=== PATIENT | male | born 1980 | race Caucasian/White ===

== ENCOUNTER 2017-03-08 05:52 | Emergency (ER) | payer MEDICAID ==
[2017-03-08 06:29] VITALS: BP 143/103
== END 2017-03-08 06:28 | disposition home or self-care (01) ==
LOC: ED 05:52
DX: F41.9 Anxiety disorder, unspecified (principal); Z79.899 Other long term (current) drug therapy

== ENCOUNTER 2017-04-01 02:22 | Emergency (ER) | payer MEDICAID | END 2017-04-01 03:09 | disposition left against medical advice (07) | LOC: ED 02:22 | DX: Z53.21 Procedure and treatment not carried out due to patient leaving prior to being seen by health care provider (principal) ==

== ENCOUNTER 2017-05-02 03:52 | Emergency (ER) | payer MEDICAID ==
[2017-05-02 04:36] VITALS: BP 140/93
== END 2017-05-02 04:36 | disposition home or self-care (01) ==
LOC: ED 03:52
DX: F41.0 Panic disorder [episodic paroxysmal anxiety] (principal); Z79.899 Other long term (current) drug therapy

== ENCOUNTER 2017-05-26 23:57 | Emergency (ER) | payer SELFPAY ==
[2017-05-27 00:29] VITALS: BP 182/118
== END 2017-05-27 00:29 | disposition left against medical advice (07) ==
LOC: ED 23:57
DX: Z53.21 Procedure and treatment not carried out due to patient leaving prior to being seen by health care provider (principal)

== ENCOUNTER 2017-12-16 17:02 | Emergency (ER) | payer MEDICAID ==
[~2017-12-16] VITALS: Ht 180.3 cm; Wt 104.8 kg
[2017-12-16 17:11] VITALS: BP 120/69; Ht 180.3 cm; Wt 104.8 kg
== END 2017-12-16 18:42 | disposition home or self-care (01) ==
LOC: ED 17:02
DX: J03.90 Acute tonsillitis, unspecified (principal); H60.91 Unspecified otitis externa, right ear

== ENCOUNTER 2018-01-08 06:09 | Emergency (ER) | payer MEDICAID ==
[2018-01-08 06:48] VITALS: BP 140/84
== END 2018-01-08 06:48 | disposition home or self-care (01) ==
LOC: ED 06:09
DX: F41.9 Anxiety disorder, unspecified (principal); I10 Essential (primary) hypertension

== ENCOUNTER 2018-03-27 08:25 | Emergency (ER) | payer MEDICAID ==
[~2018-03-27] VITALS: Ht 180.3 cm; Wt 104.3 kg
[2018-03-27 08:31] VITALS: Ht 180.3 cm; Wt 104.3 kg
[2018-03-27 11:45] VITALS: BP 127/78
== END 2018-03-27 11:45 | disposition home or self-care (01) ==
LOC: ED 08:25
DX: S90.111A Contusion of right great toe without damage to nail, initial encounter (principal); X58.XXXA Exposure to other specified factors, initial encounter; Y93.89 Activity, other specified; Y92.89 Other specified places as the place of occurrence of the external cause; Y99.8 Other external cause status
CPT/HCPCS: J0171; J1200; J2930; J3490; Q0092

== ENCOUNTER 2018-07-20 02:20 | Emergency (ER) | payer MEDICAID ==
[~2018-07-20] VITALS: Ht 180.3 cm; Wt 104.3 kg
[2018-07-20 02:26] VITALS: Ht 180.3 cm; Wt 104.3 kg
[2018-07-20 02:52] VITALS: BP 149/84
== END 2018-07-20 02:52 | disposition home or self-care (01) ==
LOC: ED 02:20
DX: F41.1 Generalized anxiety disorder (principal)

== ENCOUNTER 2018-10-02 18:34 | Emergency (ER) | payer MEDICAID ==
[~2018-10-02] VITALS: Ht 177.8 cm; Wt 106.1 kg
[2018-10-02 18:52] VITALS: Ht 177.8 cm; Wt 106.1 kg
[2018-10-02 21:47] VITALS: BP 155/88
== END 2018-10-02 21:47 | disposition home or self-care (01) ==
LOC: ED 18:34
DX: G43.909 Migraine, unspecified, not intractable, without status migrainosus (principal); F41.9 Anxiety disorder, unspecified
CPT/HCPCS: J1885

== ENCOUNTER 2019-05-20 02:28 | Emergency (ER) | payer SELFPAY ==
[~2019-05-20] VITALS: Ht 180.3 cm; Wt 99.8 kg
[2019-05-20 02:37] VITALS: BP 140/97; Ht 180.3 cm; Wt 99.8 kg
== END 2019-05-20 04:30 | disposition left against medical advice (07) ==
LOC: ED 02:28
DX: Z53.21 Procedure and treatment not carried out due to patient leaving prior to being seen by health care provider (principal)

== ENCOUNTER 2019-05-28 05:18 | Emergency (ER) | payer SELFPAY ==
[~2019-05-28] VITALS: Ht 177.8 cm; Wt 105.7 kg
[2019-05-28 05:27] VITALS: Ht 177.8 cm; Wt 105.7 kg
[2019-05-28 07:00] VITALS: BP 128/61
== END 2019-05-28 07:00 | disposition home or self-care (01) ==
LOC: ED 05:18
DX: R00.2 Palpitations (principal); F41.9 Anxiety disorder, unspecified

== ENCOUNTER 2019-07-02 10:25 | Emergency (ER) | payer MEDICAID | END 2019-07-02 10:50 | disposition left against medical advice (07) | LOC: ED 10:25 | DX: Z53.21 Procedure and treatment not carried out due to patient leaving prior to being seen by health care provider (principal) ==

== ENCOUNTER 2019-07-17 00:29 | Emergency (ER) | payer MEDICAID ==
[~2019-07-17] VITALS: Ht 180.3 cm; Wt 104.3 kg
[2019-07-17 00:40] VITALS: Ht 180.3 cm; Wt 104.3 kg
[2019-07-17 02:09] VITALS: BP 134/88
== END 2019-07-17 02:38 | disposition home or self-care (01) ==
LOC: ED 00:29
DX: F41.9 Anxiety disorder, unspecified (principal); R06.02 Shortness of breath; R07.89 Other chest pain

== ENCOUNTER 2019-11-20 00:46 | Emergency (ER) | payer MEDICAID ==
[~2019-11-20] VITALS: Ht 180.3 cm; Wt 104.3 kg
[2019-11-20 00:53] VITALS: Ht 180.3 cm; Wt 104.3 kg
[2019-11-20 02:14] VITALS: BP 121/85
== END 2019-11-20 02:14 | disposition home or self-care (01) ==
LOC: ED 00:46
DX: F41.9 Anxiety disorder, unspecified (principal); R06.02 Shortness of breath; R00.2 Palpitations; I10 Essential (primary) hypertension

== ENCOUNTER 2020-01-14 07:55 | Emergency (ER) | payer MEDICAID, SELFPAY ==
[~2020-01-14] VITALS: Ht 180.3 cm; Wt 104.3 kg
[2020-01-14 08:04] VITALS: Ht 180.3 cm; Wt 104.3 kg
[2020-01-14 08:19] VITALS: BP 147/96
== END 2020-01-14 09:29 | disposition home or self-care (01) ==
LOC: ED 07:55
DX: F41.9 Anxiety disorder, unspecified (principal); R05 Cough; I10 Essential (primary) hypertension
CPT/HCPCS: Q0092

== ENCOUNTER 2020-02-08 05:45 | Emergency (ER) | payer MEDICAID ==
[~2020-02-08] VITALS: Ht 177.8 cm; Wt 108.9 kg
[2020-02-08 05:49] VITALS: Ht 177.8 cm; Wt 108.9 kg
[2020-02-08 06:36] VITALS: BP 127/90
== END 2020-02-08 06:36 | disposition home or self-care (01) ==
LOC: ED 05:45
DX: F41.9 Anxiety disorder, unspecified (principal); I10 Essential (primary) hypertension

== ENCOUNTER 2020-02-08 10:54 | Emergency (ER) | payer MEDICAID | END 2020-02-08 11:21 | disposition left against medical advice (07) | LOC: ED 10:54 | DX: Z53.21 Procedure and treatment not carried out due to patient leaving prior to being seen by health care provider (principal) ==

== ENCOUNTER 2020-03-18 23:04 | Emergency (ER) | payer MEDICAID | END 2020-03-18 23:13 | disposition left against medical advice (07) | LOC: ED 23:04 | DX: Z53.21 Procedure and treatment not carried out due to patient leaving prior to being seen by health care provider (principal) ==

== ENCOUNTER 2020-06-25 05:26 | Emergency (ER) | payer MEDICAID ==
[~2020-06-25] VITALS: Ht 180.3 cm; Wt 104.3 kg
[2020-06-25 05:31] VITALS: BP 131/87; Ht 180.3 cm; Wt 104.3 kg
== END 2020-06-25 05:39 | disposition left against medical advice (07) ==
LOC: ED 05:26
DX: Z53.21 Procedure and treatment not carried out due to patient leaving prior to being seen by health care provider (principal)

== ENCOUNTER 2020-07-07 07:09 | Emergency (ER) | payer MEDICAID ==
[~2020-07-07] VITALS: Ht 177.8 cm; Wt 108.9 kg
[2020-07-07 07:14] VITALS: Ht 177.8 cm; Wt 108.9 kg
[2020-07-07 09:00] VITALS: BP 136/96
== END 2020-07-07 09:00 | disposition home or self-care (01) ==
LOC: ED 07:09
DX: G47.30 Sleep apnea, unspecified (principal); F41.9 Anxiety disorder, unspecified; I10 Essential (primary) hypertension; E66.9 Obesity, unspecified; Z68.34 Body mass index [BMI] 34.0-34.9, adult
CPT/HCPCS: 36600; Q0092

== ENCOUNTER 2020-07-10 01:50 | Emergency (ER) | payer MEDICAID ==
[~2020-07-10] VITALS: Ht 180.3 cm; Wt 109.0 kg
[2020-07-10 01:57] VITALS: Ht 180.3 cm; Wt 109.0 kg
[2020-07-10 02:09] VITALS: BP 131/87
== END 2020-07-10 02:09 | disposition left against medical advice (07) ==
LOC: ED 01:50
DX: Z53.21 Procedure and treatment not carried out due to patient leaving prior to being seen by health care provider (principal)

== ENCOUNTER 2020-07-30 04:28 | Emergency (ER) | payer MEDICAID | END 2020-07-30 05:03 | disposition left against medical advice (07) | LOC: ED 04:28 | DX: Z53.21 Procedure and treatment not carried out due to patient leaving prior to being seen by health care provider (principal) ==

== ENCOUNTER 2020-08-13 04:12 | Emergency (ER) | payer MEDICAID ==
[~2020-08-13] VITALS: Ht 180.3 cm; Wt 104.3 kg
[2020-08-13 04:41] VITALS: Ht 180.3 cm; Wt 104.3 kg
[2020-08-13 05:01] VITALS: BP 149/105
== END 2020-08-13 05:01 | disposition home or self-care (01) ==
LOC: ED 04:12
DX: F41.9 Anxiety disorder, unspecified (principal); R07.89 Other chest pain

== ENCOUNTER 2020-09-06 03:34 | Emergency (ER) | payer MEDICAID ==
[~2020-09-06] VITALS: Ht 180.3 cm; Wt 108.9 kg
[2020-09-06 03:38] VITALS: BP 140/96; Ht 180.3 cm; Wt 108.9 kg
== END 2020-09-06 04:11 | disposition home or self-care (01) ==
LOC: ED 03:34
DX: F41.9 Anxiety disorder, unspecified (principal); I10 Essential (primary) hypertension

== ENCOUNTER 2020-11-11 00:30 | Emergency (ER) | payer MEDICAID ==
[~2020-11-11] VITALS: Ht 177.8 cm; Wt 108.9 kg
[2020-11-11 00:38] VITALS: Ht 177.8 cm; Wt 108.9 kg
[2020-11-11 01:26] VITALS: BP 125/78
== END 2020-11-11 01:26 | disposition home or self-care (01) ==
LOC: ED 00:30
DX: F41.0 Panic disorder [episodic paroxysmal anxiety] (principal); I10 Essential (primary) hypertension

== ENCOUNTER 2020-11-17 06:30 | Emergency (ER) | payer MEDICAID ==
[~2020-11-17] VITALS: Ht 177.8 cm; Wt 108.9 kg
[2020-11-17 06:40] VITALS: BP 145/82; Ht 177.8 cm; Wt 108.9 kg
[2020-11-17] MEDS ORDERED: ZITHROMAX Z-PA250 MG PO (09:09)
[2020-11-17] MEDS ORDERED: PROMETHAZINE-D473 M1 PO (09:09)
[2020-11-17] MEDS ORDERED: CLARITIN10 MG PO (09:09)
[2020-11-17] MEDS ORDERED: PROAIR HFA8.5 GM INH (09:09)
== END 2020-11-17 09:39 | disposition home or self-care (01) ==
LOC: ED 06:30
DX: J18.0 Bronchopneumonia, unspecified organism (principal); I10 Essential (primary) hypertension

== ENCOUNTER 2020-11-21 05:32 | Emergency (ER) | payer MEDICAID ==
[~2020-11-21] VITALS: Ht 180.3 cm; Wt 109.3 kg
[~2020-11-21 05:32] MED LIST: CLARITIN10 MG PO; PROAIR HFA8.5 GM INH; PROMETHAZINE-D473 M1 PO; ZITHROMAX Z-PA250 MG PO
[2020-11-21 05:37] VITALS: Ht 180.3 cm; Wt 109.3 kg
[2020-11-21] MEDS ORDERED: PROAIR HFA8.5 GM INH (07:28)
[2020-11-21] MEDS ORDERED: TESSALON PERLE100 MG PO (07:28)
[2020-11-21 07:39] VITALS: BP 135/89
== END 2020-11-21 07:32 | disposition home or self-care (01) ==
LOC: ED 05:32
DX: R06.03 Acute respiratory distress (principal); I10 Essential (primary) hypertension